=== PATIENT | male | born 1930 | race Caucasian/White ===

== ENCOUNTER 2017-10-02 08:43 | Emergency (ER) | payer MEDICARE, OTHER ==
[2017-10-02] MEDS: NICARDipine HCL 30 MG CAPSULE PO (09:27)
== END 2017-10-02 11:16 | disposition home or self-care (01) ==
LOC: E/R 08:43
DX: I10 Essential (primary) hypertension (principal); R40.2142 Coma scale, eyes open, spontaneous, at arrival to emergency department; R40.2252 Coma scale, best verbal response, oriented, at arrival to emergency department; R40.2362 Coma scale, best motor response, obeys commands, at arrival to emergency department; Z79.82 Long term (current) use of aspirin; Z98.61 Coronary angioplasty status
CPT/HCPCS: 99282

== ENCOUNTER 2017-10-04 18:28 | Emergency (ER) | payer MEDICARE, OTHER | END 2017-10-04 19:10 | disposition home or self-care (01) | LOC: E/R 18:28 | DX: I10 Essential (primary) hypertension (principal); Z79.82 Long term (current) use of aspirin; Z98.61 Coronary angioplasty status | CPT/HCPCS: 99282 ==